=== PATIENT | male | born 1965 | race Caucasian/White ===

== ENCOUNTER 2016-10-04 21:55 | Emergency (ER) | payer OTHER ==
[2016-10-04 22:15] VITALS: BP 126/75; PULSE 61; TEMP 98.3; BMI 23.6
--- NOTE | 2016-10-04 23:13 | PDOC ---
History of Present Illness - General History Source: Patient Exam Limitations: No Limitations - History of Present Illness Initial Comments: 10/04/16 23:17 Patient is a 51 year old male with a significant past medical history of Parkinsons disease and kidney stones(last stone was 1 year ago) who presents to the ED with bilateral flank pain and urinary retention for 4 hours before presenting to the ED. Patient states that he was able to urinate a little before presenting but he was forcing himself to. Patient states that he is cold. Denies chest pain, abdominal pain, nausea, vomiting. Allergies: NKA Urologist - Dr. Paez <Sandie Webb - Last Filed: 10/04/16 23:17> - General History Source: Patient <JaidenLane mckeon - Last Filed: 10/05/16 02:20> - General Chief Complaint: Pain Stated Complaint: PAIN, ACUTE Time Seen by Provider: 10/04/16 23:10 Past History <Sandie Webb - Last Filed: 10/04/16 23:17> - Past Medical History HTN: Yes Kidney Stones: Yes Psychiatric Problems: Yes (DEPRESSION) - Immunization History Immunization Up to Date: Yes - Psycho/Social/Smoking Cessation Hx Anxiety: No Suicidal Ideation: No Smoking History: Never smoked Have you smoked in the past 12 months: No Information on smoking cessation initiated: No Hx Alcohol Use: No Drug/Substance Use Hx: No Substance Use Type: None <Lane Han - Last Filed: 10/05/16 02:20> - Past Medical History Allergies/Adverse Reactions: Allergies Allergy/AdvReac Type Severity Reaction Status Date / Time No Known Allergies Allergy Verified 08/15/15 21:12 Home Medications: Ambulatory Orders Carbidopa/Levodopa 25/100 [Sinemet 25/100 -] 1 each PO TID #90 tablet 08/01/14 Saw/Vit E/Sod Adriana/Lyc/Beta/Pyg [Prostate Health Caplet] 1 each PO DAILY Review of Systems - Review of Systems Able to Perform ROS?: Yes Comments:: 10/04/16 23:18 CONSTITUTIONAL: Absent: fever, chills, diaphoresis, generalized weakness, malaise, loss of appetite HEENT: Absent: rhinorrhea, nasal congestion, throat pain, throat swelling, difficulty swallowing, mouth swelling, ear pain, eye pain, visual Changes CARDIOVASCULAR: Absent: chest pain, syncope, palpitations, irregular heart rate, lightheadedness , peripheral edema RESPIRATORY: Absent: cough, shortness of breath, dyspnea with exertion, orthopnea, wheezing, stridor, hemoptysis GASTROINTESTINAL: Absent: abdominal pain, abdominal distension, nausea, vomiting, diarrhea, constipation, melena, hematochezia GENITOURINARY: Present: urinary retention, bilateral flank pain Absent: dysuria, frequency, urgency, hesitancy, hematuria, genital pain MUSCULOSKELETAL: Absent: myalgia, arthralgia, joint swelling SKIN: Absent: rash, itching, pallor HEMATOLOGIC/IMMUNOLOGIC: Absent: easy bleeding, easy bruising, lymphadenopathy, frequent infections ENDOCRINE: Absent: unexplained weight gain, unexplained weight loss, heat intolerance, cold intolerance NEUROLOGIC: Absent: headache, focal weakness or paresthesias, dizziness, unsteady gait, seizure, mental status changes, bladder or bowel incontinence PSYCHIATRIC: Absent: anxiety, depression, suicidal or homicidal ideation, hallucinations. <Sandie Webb - Last Filed: 10/04/16 23:17> *Physical Exam - Vital Signs Last Vital Signs Temp Pulse Resp BP Pulse Ox 98.3 F 61 18 126/75 98 10/04/16 22:12 10/04/16 22:12 10/04/16 22:12 10/04/16 22:12 10/04/16 22:12 - Physical Exam Comments: 10/04/16 23:18 GENERAL: Well developed, well nourished. Awake and alert. In no acute distress. HEENT: Normocephalic, atraumatic. PERRLA, EOMI. No conjunctival pallor. Sclerae are non -icteric. Moist mucous membranes. Oropharynx is clear. NECK: Supple. Full ROM. No JVD. Carotid pulses 2+ and symmetric, without bruits. No thyromegaly. No lymphadenopathy. CARDIOVASCULAR: Regular rate and rhythm. No murmurs, rubs, or gallops. Distal pulses are 2+ and symmetric. PULMONARY: No evidence of respiratory distress. Lungs clear to auscultation bilaterally. No wheezing, rales or rhonchi. ABDOMINAL: (+)Minimal suprapubic tenderness Soft. Non-tender. Non-distended. No rebound or guarding. No organomegaly. Normoactive bowel sounds. MUSCULOSKELETAL Normal range of motion at all joints. No bony deformities or tenderness. No CVA tenderness. EXTREMITIES: No cyanosis. No clubbing. No edema. No calf tenderness. SKIN: Warm and dry. Normal capillary refill. No rashes. No jaundice. NEUROLOGICAL: (+)No obvious resting tremor. Alert, awake, appropriate. Cranial nerves 2-12 intact. No deficits to light touch and temperature in face, upper extremities and lower extremities. No motor deficits in the in face, upper extremities and lower extremities. Normoreflexic in the upper and lower extremities. Normal speech. Toes are downgoing bilaterally. PSYCHIATRIC: Cooperative. Good eye contact. Appropriate mood and affect. <Sandie Webb - Last Filed: 10/04/16 23:17> - Vital Signs Last Vital Signs Temp Pulse Resp BP Pulse Ox 98.3 F 61 18 126/75 98 10/04/16 22:12 10/04/16 22:12 10/04/16 22:12 10/04/16 22:12 10/04/16 22:12 <Lane Han - Last Filed: 10/05/16 02:20> ED Treatment Course - LABORATORY CBC & Chemistry Diagram: 10/05/16 00:20 10/05/16 00:20 <Lane Han - Last Filed: 10/05/16 02:20> Medical Decision Making - Medical Decision Making 10/05/16 02:20 Dr. Han: The scribe's documentation has been prepared under my direction and personally reviewed by me in its entirery. I confirm that the note above accurately reflects all work, treatment, procedures, and medical decision making performed by me. <Lane Han - Last Filed: 10/05/16 02:20> *DC/Admit/Observation/Transfer - Attestations Scribe Attestion: 10/04/16 23:21 Documentation prepared by KYLE Pleitez, acting as medical research scientist for Lane Han DO. <Sandie Webb - Last Filed: 10/04/16 23:17> - Discharge Dispostion Admit: No <Lane Han - Last Filed: 10/05/16 02:20> Diagnosis at time of Disposition: Calculus of kidney and ureter - Discharge Dispostion Disposition: HOME Condition at time of disposition: Stable - Referrals Referrals: Mason Paez MD [Staff Physician] - - Patient Instructions Printed Discharge Instructions: DI for Kidney Stones
[2016-10-05 00:29] LABS: EOSINOPHIL 0.3 % (0-4.5)
[2016-10-05 00:34] LABS: BASOPHIL 0.5 % (0-2.0); MCH 29.3 pg (25.7-33.7); MCHC 32.8 g/dl (32.0-35.9); MEAN CELL VOLUME 89.1 fl (80-96); MEAN PLT VOLUME 10.4 fl (7.5-11.1); NEUTROPHILS 85.6 % (42.8-82.8); PLATELET COUNT 143 K/MM3 (134-434); RDW 13.6 % (11.9-15.9); WHITE BLOOD COUNT 12.6 K/mm3 (4.0-10.0)
[2016-10-05 00:59] LABS: ALBUMIN 4.1 g/dl (3.4-5.0); ALK PHOS 91 U/L (45-117); ANION GAP 11 (8-16); BILIRUBIN,TOTAL 0.5 mg/dL (0.2-1.0); CO2 26 mmol/L (21-32); COCKROFT - GAULT 91.72; GLUCOSE,RANDOM 95 mg/dL (74-106); MAGNESIUM 2.4 mg/dL (1.8-2.4); SGOT/AST 14 U/L (15-37); SGPT/ALT 14 U/L (12-78); TOT PROT 7.3 g/dl (6.4-8.2)
[2016-10-05 01:57] LABS: URINE APPEARANCE CLEAR; URINE BILIRUBIN NEGATIVE (NEGATIVE); URINE BLOOD 2+ (NEGATIVE); URINE COLOR COLORLESS; URINE GLUCOSE (UA) NEGATIVE (NEGATIVE); URINE KETONE NEGATIVE (NEGATIVE); URINE LEUK ESTERASE NEGATIVE (NEGATIVE); URINE NITRITE NEGATIVE (NEGATIVE); URINE PROTEIN NEGATIVE (NEGATIVE); URINE UROBILINOGEN NEGATIVE E.U./dl (0.2-1.0)
[2016-10-05 02:48] LABS: URINE RBC <1 /hpf (0-3); URINE WBC <1 /hpf (3-5)
== END 2016-10-05 02:33 | disposition home or self-care (01) ==
LOC: SUPCPDRO 21:55 → JER 21:55
DX: N13.2 Hydronephrosis with renal and ureteral calculous obstruction (principal); Z87.442 Personal history of urinary calculi; I10 Essential (primary) hypertension; F30.9 Manic episode, unspecified; G20 Parkinson's disease
CPT/HCPCS: 36415; 74176; 80053; 81003; 81015; 83735; 85025; 87086; 99281-25

== ENCOUNTER 2018-12-06 19:57 | Emergency (ER) | payer OTHER ==
[2018-12-06 20:15] VITALS: BP 102/65; PULSE 65; TEMP 98.7; BMI 24.3
[2018-12-06] MEDS ORDERED: SODIUM CHLORIDE 1,000 ML IV STA (20:17)
[2018-12-06] MEDS ORDERED: KETOROLAC TROMETHAMINE 30 MG/1 ML VIAL IVPUSH ONE (20:17)
--- NOTE | 2018-12-06 20:17 | PDOC ---
Rapid Medical Evaluation Chief Complaint: Urinary Problem Time Seen by Provider: 12/06/18 20:13 Medical Evaluation: Allergies Allergy/AdvReac Type Severity Reaction Status Date / Time No Known Allergies Allergy Verified 08/15/15 21:12 12/06/18 20:15 Pt c/o: rt flank pain with dysuria, hx kidney stones in the past seen by lina Pt on brief exam: no cve taenderness, mild ruq and flank tenderness on exam pt ordered for: labs, urine, ivf, and toradol Pt to proceed to the ED Discharge Disposition - Diagnosis Flank pain, Constipation - Discharge Dispostion Disposition: HOME Condition at time of disposition: Stable - Prescriptions Prescriptions: Docusate Sodium [Colace] 100 mg PO DAILY #14 capsule Lactulose (Oral Use) [Cephulac -] 20 gm PO TID #1 bottle - Referrals Referrals: Mason Paez MD [Primary Care Provider] - - Patient Instructions Printed Discharge Instructions: DI for Constipation Additional Instructions: Please follow up with Dr. James if urinary symptoms persist. Take medications as prescribed for constipation. If you develop abdominal pain, persistent vomiting, or new rectal bleeding, please return to the ER. - Post Discharge Activity
[2018-12-06 21:23] LABS: BASO % 0.5 % (0-2.0); EOS % 0.4 % (0-4.5); HEMATOCRIT 43.8 % (35.4-49); HEMOGLOBIN 14.7 GM/dL (11.7-16.9); LYMPH % 20.7 % (8-40); MCH 30.1 pg (25.7-33.7); MCHC 33.6 g/dl (32.0-35.9); MEAN CELL VOLUME 89.6 fl (80-96); MEAN PLT VOLUME 9.9 fl (7.5-11.1); MONO % 5.9 % (3.8-10.2); NEUT % 72.5 % (42.8-82.8); PLATELET COUNT 149 K/MM3 (134-434); RBC 4.88 M/mm3 (4.00-5.60); RDW 13.6 % (11.9-15.9); WHITE BLOOD COUNT 9.3 K/mm3 (4.0-10.0)
--- NOTE | 2018-12-06 21:30 | PDOC ---
History of Present Illness - General Chief Complaint: Urinary Problem Stated Complaint: FREQUENT URINATION Time Seen by Provider: 12/06/18 20:13 - History of Present Illness Initial Comments: 12/06/18 21:27 CHIEF COMPLAINT: urinary frequency, constipation HISTORY OF PRESENT ILLNESS: 53 yo M with hx of Parkinson's and kidney stones presents to ED with urinary frequency and burning and constipation. Patient states he has had urinary frequency for the last 5 days and has not had a bowel movement in 3 days. He reports feeling dizzy and nauseous today but denies any vomiting. He also reports straining to make a bowel movement and that when he wipes there is BRBPR. No recent travel or sick contacts. PAST MEDICAL HISTORY: Denies past medical history FAMILY HISTORY: Denies SOCIAL HISTORY: Denies tobacco, alcohol, illicit drug use. SURGICAL HISTORY: Denies ALLERGIES: No known drug allergies REVIEW OF SYSTEMS General/Constitutional: Denies fever or chills. Denies weakness, weight change. HEENT: Denies change in vision. Denies ear pain or discharge. Denies sore throat. Cardiovascular: Denies chest pain or shortness of breath. Respiratory: Denies cough, wheezing, or hemoptysis. Gastrointestinal: Denies nausea, vomiting, diarrhea or constipation. Denies rectal bleeding. Genitourinary: Urinary frequency and burning. Denies hematuria. Musculoskeletal: Denies joint or muscle swelling or pain. Denies neck or back pain. Skin and breasts: Denies rash or easy bruising. Neurologic: Denies headache, vertigo, loss of consciousness, or loss of sensation. PHYSICAL EXAM General Appearance: Well-appearing, appropriately dressed. No apparent distress. HEENT: EOMI, PERRLA, normal ENT inspection, normal voice, TMs normal, pharynx normal. No conjunctival pallor. No photophobia, scleral icterus. Neck: Supple. Trachea midline. No tenderness, rigidity, carotid bruit, stridor , lymphadenopathy, or thyromegaly. Respiratory/Chest: Lungs CTAB. No shortness of breath, chest tenderness, respiratory distress, accessory muscle use. No crackles, rales, rhonchi, stridor , wheezing, dullness Cardiovascular: RRR. S1, S2. No JVD, murmur, bradycardia, tachycardia. Gastrointestinal/Abdominal: Normal bowel sounds. Abdomen soft, non-distended. No tenderness or rebound tenderness. No organomegaly, pulsatile mass, guarding , hernia, hepatomegaly, splenomegaly. Musculoskeletal/Extremities: R CVAT. Normal inspection. FROM of all extremities, normal capillary refill. Pelvis Stable. No tenderness to extremities, pedal edema, swelling, erythema or deformity. Integumentary: Appropriate color, dry, warm. No cyanosis, erythema, jaundice or rash Neurologic: screw eye assembler II-XII intact. Fully oriented, alert. Appropriate mood/affect. Motor strength 5/5. No appreciable EOM palsy, facial droop or sensory deficit. 0 Past History - Past Medical History Allergies/Adverse Reactions: Allergies Allergy/AdvReac Type Severity Reaction Status Date / Time No Known Allergies Allergy Verified 12/06/18 20:15 Home Medications: Ambulatory Orders Carbidopa/Levodopa [Sinemet -] 1 each PO TID #90 tablet 08/01/14 Saw/Vit E/Sod Adriana/Lyc/Beta/Pyg [Prostate Health Caplet] 1 each PO DAILY Ibuprofen 800 mg PO TID #30 tablet 10/05/16 Oxycodone HCl/Acetaminophen [Percocet 5-325 mg Tablet] 1 - 2 tab PO Q6H #20 tablet MDD 4 10/05/16 Docusate Sodium [Colace] 100 mg PO DAILY #14 capsule 12/06/18 Lactulose (Oral Use) [Cephulac -] 20 gm PO TID #1 bottle 12/06/18 COPD: No HTN: Yes Kidney Stones: Yes Psychiatric Problems: Yes (DEPRESSION) Other medical history: parkinsons - Immunization History Immunization Up to Date: Yes - Suicide/Smoking/Psychosocial Hx Smoking History: Never smoked Have you smoked in the past 12 months: No Hx Alcohol Use: No Drug/Substance Use Hx: No Substance Use Type: None *Physical Exam - Vital Signs Last Vital Signs Temp Pulse Resp BP Pulse Ox 98.7 F 65 18 102/65 99 12/06/18 20:13 12/06/18 20:13 12/06/18 20:13 12/06/18 20:13 12/06/18 20:13 ED Treatment Course - LABORATORY CBC & Chemistry Diagram: 12/06/18 21:04 12/06/18 21:04 - RADIOLOGY Radiology Studies Ordered: Category Date Time Status ABDOMEN FLAT & UPRIGHT [RAD] Stat Radiology 12/06/18 21:25 Ordered Medical Decision Making - Medical Decision Making 12/06/18 21:30 53 yo M with hx of Parkinson's and kidney stones presents to ED with urinary frequency and burning as well as constipation and rectal bleeding . -labs, urine -abd x-ray -guaic 12/06/18 23:45 guaiac negative. labs negative. abd x-ray negative for obstruction. d/c with laxatives. *DC/Admit/Observation/Transfer Diagnosis at time of Disposition: Flank pain Constipation Qualifiers: Constipation type: unspecified constipation type Qualified Code(s): K59.00 - Constipation, unspecified - Discharge Dispostion Disposition: HOME Condition at time of disposition: Stable Decision to Admit order: No - Prescriptions Prescriptions: Docusate Sodium [Colace] 100 mg PO DAILY #14 capsule Lactulose (Oral Use) [Cephulac -] 20 gm PO TID #1 bottle - Referrals Referrals: Mason Paez MD [Primary Care Provider] - - Patient Instructions Printed Discharge Instructions: DI for Constipation Additional Instructions: Please follow up with Dr. James if urinary symptoms persist. Take medications as prescribed for constipation. If you develop abdominal pain, persistent vomiting, or new rectal bleeding, please return to the ER. - Post Discharge Activity
[2018-12-06] MEDS ORDERED: KETOROLAC TROMETHAMINE 30 MG/1 ML VIAL ONE (21:31)
[2018-12-06 22:03] LABS: BILIRUBIN,TOTAL 0.7 mg/dL (0.2-1); BLOOD UREA NITROGEN 6.5 mg/dL (7-18); CALCIUM 8.7 mg/dL (8.5-10.1); MAGNESIUM 2.5 mg/dL (1.8-2.4); POTASSIUM 4.3 mmol/L (3.5-5.1); TOT PROT 7.3 g/dl (6.4-8.2)
[2018-12-06 22:10] LABS: URINE APPEARANCE CLEAR; URINE BILIRUBIN NEGATIVE (NEGATIVE); URINE COLOR YELLOW; URINE GLUCOSE (UA) NEGATIVE (NEGATIVE); URINE KETONE TRACE (NEGATIVE); URINE LEUK ESTERASE NEGATIVE (NEGATIVE); URINE NITRITE NEGATIVE (NEGATIVE); URINE PROTEIN NEGATIVE (NEGATIVE); URINE UROBILINOGEN 0.2 mg/dL (0.2-1.0)
--- NOTE | 2019-01-08 09:36 | EKG ---
Test Reason : Blood Pressure : / mmHG Vent. Rate : 075 BPM Atrial Rate : 075 BPM P-R Int : 178 ms QRS Dur : 114 ms QT Int : 400 ms P-R-T Axes : 035 000 020 degrees QTc Int : 446 ms NORMAL SINUS RHYTHM NORMAL ECG Confirmed by Lenin Duque MD ([id number]) on 01/08/2019 9:36:41 AM Referred By: Confirmed By:Lenin Duque MD
== END 2018-12-06 23:56 | disposition home or self-care (01) ==
LOC: JER 19:57
PROC: 3E0333Z Introduction of Anti-inflammatory into Peripheral Vein, Percutaneous Approach (ICD-10-PCS; principal; 2018-12-06)
PROC: 3E0337Z Introduction of Electrolytic and Water Balance Substance into Peripheral Vein, Percutaneous Approach (ICD-10-PCS; 2018-12-06)
DX: K59.00 Constipation, unspecified (principal); R10.9 Unspecified abdominal pain; G20 Parkinson's disease; I10 Essential (primary) hypertension; Z87.442 Personal history of urinary calculi
CPT/HCPCS: 36415; 74019-TC-FY; 80053; 81003; 82272; 83690; 83735; 85025; 87086; 93005; 93010; 99283-25; J7030

== ENCOUNTER 2022-12-18 17:08 | Observation (INO) | payer OTHER ==
[2022-12-18 17:21] VITALS: BMI 20.2
[2022-12-18] MEDS ORDERED: SODIUM CHLORIDE 1,000 ML IV SCH (17:30)
[2022-12-18 18:50] LABS: BASO % 0.3 % (0-2.0); EOS % 0.1 % (0-4.5); HEMATOCRIT 39.4 % (35.4-49); HEMOGLOBIN 13.3 GM/dL (11.7-16.9); MCHC 33.8 g/dl (32.0-35.9); MEAN CELL VOLUME 88.8 fl (80-96); MEAN PLT VOLUME 10.3 fl (7.5-11.1); NEUT % 79.6 % (42.8-82.8); PLATELET COUNT 120 10^3/uL (134-434); RBC 4.44 M/mm3 (4.00-5.60); RDW 13.4 % (11.9-15.9); WHITE BLOOD COUNT 9.3 K/mm3 (4.0-10.0)
[2022-12-18 18:58] LABS: POTASSIUM 4.6 mmol/L (3.5-5.1)
[2022-12-18 18:59] LABS: ALBUMIN 3.6 g/dl (3.4-5.0); CALCIUM 8.8 mg/dL (8.5-10.1)
[2022-12-18 19:01] LABS: BLOOD UREA NITROGEN 17.7 mg/dL (7-18)
[2022-12-18 19:02] LABS: CREATININE 1.1 mg/dL (0.55-1.3)
[2022-12-18 19:04] LABS: INR 1.16 (0.83-1.09); PROTHROMBIN TIME (PATIENT) 13.4 SEC (9.7-13.0)
[2022-12-18 19:05] LABS: BILIRUBIN,TOTAL 0.8 mg/dL (0.2-1); TOT PROT 6.4 g/dl (6.4-8.2)
[2022-12-18 19:07] LABS: ACTIVATED PTT 28.9 SECONDS (25.2-36.5)
[2022-12-18] MEDS ORDERED: SODIUM CHLORIDE 0.9% 500 ML INFUS.BAG IV ONE (20:08)
[2022-12-18] MEDS ORDERED: CARBIDOPA/LEVODOPA 25/100 TABLET (FP) ONE (21:36)
[2022-12-18] MEDS ORDERED: ASPIRIN 325 MG ENTERIC COATED TABLET (FP) PO ONE (21:45)
[2022-12-18] MEDS ORDERED: ASPIRIN 325 MG ENTERIC COATED TABLET (FP) ONE (22:00)
[2022-12-18] MEDS ORDERED: rOPINIRole HCL 0.25 MG TABLET PO SCH (22:00)
[2022-12-18] MEDS ORDERED: ENOXAPARIN NA (PORCINE) 40 MG/0.4 ML DISP.SYRIN SQ ONE (22:01)
[2022-12-18] MEDS: ENOXAPARIN NA (PORCINE) 40 MG/0.4 ML DISP.SYRIN SQ SCH (22:14)
[2022-12-19 06:41] LABS: HEMATOCRIT 39.9 % (35.4-49); HEMOGLOBIN 13.1 GM/dL (11.7-16.9); MCH 29.6 pg (25.7-33.7); MCHC 32.7 g/dl (32.0-35.9); MEAN CELL VOLUME 90.5 fl (80-96); MEAN PLT VOLUME 10.6 fl (7.5-11.1); PLATELET COUNT 110 10^3/uL (134-434); RBC 4.41 M/mm3 (4.00-5.60); RDW 13.6 % (11.9-15.9); WHITE BLOOD COUNT 6.7 K/mm3 (4.0-10.0)
[2022-12-19] MEDS ORDERED: CARBIDOPA/LEVODOPA 25/100 TABLET (FP) ONE (06:47)
[2022-12-19] MEDS: SODIUM CHLORIDE 1,000 ML IV SCH (06:54)
[2022-12-19 07:04] LABS: POTASSIUM 4.1 mmol/L (3.5-5.1)
[2022-12-19 07:05] LABS: BLOOD UREA NITROGEN 12.3 mg/dL (7-18); CALCIUM 8.6 mg/dL (8.5-10.1)
[2022-12-19 07:07] LABS: ALBUMIN 3.4 g/dl (3.4-5.0)
[2022-12-19 07:09] LABS: CREATININE 0.8 mg/dL (0.55-1.3)
[2022-12-19 07:11] LABS: TOT PROT 6.3 g/dl (6.4-8.2)
[2022-12-19] MEDS ORDERED: SOLIFENACIN SUCCINATE PO SCH (10:00)
[2022-12-19 16:49] LABS: URINE APPEARANCE CLEAR; URINE BILIRUBIN NEGATIVE (NEGATIVE); URINE COLOR YELLOW; URINE GLUCOSE (UA) NEGATIVE (NEGATIVE); URINE KETONE 1+ (NEGATIVE); URINE LEUK ESTERASE NEGATIVE (NEGATIVE); URINE NITRITE NEGATIVE (NEGATIVE); URINE PROTEIN NEGATIVE (NEGATIVE); URINE UROBILINOGEN 0.2 mg/dL (0.2-1.0)
[2022-12-19] MEDS: amLODIPine BESYLATE 5 MG TABLET (FP) PO SCH (19:13)
[2022-12-19] MEDS: SOLIFENACIN SUCCINATE 5 MG TAB PO SCH (19:13)
[2022-12-19] MEDS: ASPIRIN COATED 81 MG TABLET.EC PO SCH (19:13)
[2022-12-19] MEDS: ENOXAPARIN NA (PORCINE) 40 MG/0.4 ML DISP.SYRIN SQ SCH (19:13)
[2022-12-19] MEDS: CARBIDOPA/LEVODOPA 25/100 TABLET (FP) PO SCH (23:14)
[2022-12-20] MEDS ORDERED: MELATONIN 5 MG TABLETS PO ONE (00:39)
[2022-12-20] MEDS: rOPINIRole HCL 0.25 MG TABLET PO SCH ×4 (00:46→15:23)
[2022-12-20] MEDS: amLODIPine BESYLATE 5 MG TABLET (FP) PO SCH (09:09)
[2022-12-20] MEDS: ASPIRIN COATED 81 MG TABLET.EC PO SCH (09:09)
[2022-12-20] MEDS: ENOXAPARIN NA (PORCINE) 40 MG/0.4 ML DISP.SYRIN SQ SCH (09:13)
[2022-12-20] MEDS: SOLIFENACIN SUCCINATE 5 MG TAB PO SCH (10:41)
[2022-12-20] MEDS: CARBIDOPA/LEVODOPA 25/100 TABLET (FP) PO SCH ×3 (10:41→15:24)
[2022-12-20] MEDS ORDERED: CARBIDOPA/LEVODOPA 25/100 TABLET (FP) PO SCH (13:21)
[2022-12-20] MEDS: SODIUM CHLORIDE 1,000 ML IV SCH (13:21)
[2022-12-20] MEDS ORDERED: levETIRAcetam 500 MG/5 ML INJECTION VIAL IVPB ONE (18:51)
[2022-12-20] MEDS: levETIRAcetam 500 MG/5 ML INJECTION VIAL IVPB SCH ×2 (21:15→22:47)
[2022-12-20] MEDS ORDERED: SODIUM CHLORIDE 1,000 ML IV SCH (22:00)
[2022-12-20] MEDS: MELATONIN 5 MG TABLETS PO SCH ×2 (22:46)
[2022-12-21] MEDS: rOPINIRole HCL 0.25 MG TABLET PO SCH ×4 (05:58→22:43)
[2022-12-21] MEDS: ASPIRIN COATED 81 MG TABLET.EC PO SCH (09:04)
[2022-12-21] MEDS: amLODIPine BESYLATE 5 MG TABLET (FP) PO SCH (09:05)
[2022-12-21] MEDS: levETIRAcetam 500 MG/5 ML INJECTION VIAL IVPB SCH ×2 (09:05→22:43)
[2022-12-21] MEDS: ENOXAPARIN NA (PORCINE) 40 MG/0.4 ML DISP.SYRIN SQ SCH (09:05)
[2022-12-21] MEDS: SOLIFENACIN SUCCINATE 5 MG TAB PO SCH (09:06)
[2022-12-21] MEDS ORDERED: rOPINIRole HCL 0.25 MG TABLET PO SCH (14:45)
[2022-12-21] MEDS ORDERED: DOCUSATE NA 100 MG/10 ML UNIT-DOSE CUPS PO PRN (15:31)
[2022-12-21] MEDS: POLYETHYLENE GLYCOL (HEALTHYLAX) 3350 17 GM PACKET PO SCH ×2 (16:10→22:44)
[2022-12-21] MEDS: CARBIDOPA/LEVODOPA 25/100 TABLET (FP) PO SCH (22:43)
[2022-12-21] MEDS: MELATONIN 5 MG TABLETS PO SCH (22:44)
[2022-12-22 08:24] LABS: BASO % 0.2 % (0-2.0); EOS % 0.3 % (0-4.5); HEMATOCRIT 40.4 % (35.4-49); HEMOGLOBIN 13.6 GM/dL (11.7-16.9); LYMPH % 16.6 % (8-40); MCHC 33.6 g/dl (32.0-35.9); MEAN CELL VOLUME 89.2 fl (80-96); MEAN PLT VOLUME 10.2 fl (7.5-11.1); MONO % 6.8 % (3.8-10.2); NEUT % 76.1 % (42.8-82.8); PLATELET COUNT 127 10^3/uL (134-434); RBC 4.53 M/mm3 (4.00-5.60); RDW 13.3 % (11.9-15.9); WHITE BLOOD COUNT 7.8 K/mm3 (4.0-10.0)
[2022-12-22 09:14] LABS: POTASSIUM 4.2 mmol/L (3.5-5.1)
[2022-12-22 09:16] LABS: CALCIUM 8.6 mg/dL (8.5-10.1)
[2022-12-22 09:17] LABS: ALBUMIN 3.1 g/dl (3.4-5.0); BLOOD UREA NITROGEN 13.9 mg/dL (7-18)
[2022-12-22 09:20] LABS: CREATININE 0.7 mg/dL (0.55-1.3)
[2022-12-22 09:21] LABS: BILIRUBIN,TOTAL 0.9 mg/dL (0.2-1)
[2022-12-22] MEDS: POLYETHYLENE GLYCOL (HEALTHYLAX) 3350 17 GM PACKET PO SCH ×2 (11:11→22:22)
[2022-12-22] MEDS: ENOXAPARIN NA (PORCINE) 40 MG/0.4 ML DISP.SYRIN SQ SCH (11:11)
[2022-12-22] MEDS: CARBIDOPA/LEVODOPA 25/100 TABLET (FP) PO SCH ×2 (11:12→22:22)
[2022-12-22] MEDS: ASPIRIN COATED 81 MG TABLET.EC PO SCH (11:13)
[2022-12-22] MEDS: SOLIFENACIN SUCCINATE 5 MG TAB PO SCH (11:15)
[2022-12-22] MEDS: amLODIPine BESYLATE 5 MG TABLET (FP) PO SCH (11:15)
[2022-12-22] MEDS: levETIRAcetam 500 MG/5 ML INJECTION VIAL IVPB SCH ×2 (11:19→11:31)
[2022-12-22] MEDS: rOPINIRole HCL 0.25 MG TABLET PO SCH (22:22)
[2022-12-22] MEDS: MELATONIN 5 MG TABLETS PO SCH (22:22)
[2022-12-23] MEDS: POLYETHYLENE GLYCOL (HEALTHYLAX) 3350 17 GM PACKET PO SCH ×2 (09:32→22:54)
[2022-12-23] MEDS: ASPIRIN COATED 81 MG TABLET.EC PO SCH (09:32)
[2022-12-23] MEDS: ENOXAPARIN NA (PORCINE) 40 MG/0.4 ML DISP.SYRIN SQ SCH (09:32)
[2022-12-23] MEDS: CARBIDOPA/LEVODOPA 25/100 TABLET (FP) PO SCH ×2 (09:33→22:54)
[2022-12-23] MEDS: SOLIFENACIN SUCCINATE 5 MG TAB PO SCH (09:33)
[2022-12-23] MEDS ORDERED: DOCUSATE NA 100 MG/10 ML UNIT-DOSE CUPS PO PRN (11:02)
[2022-12-23] MEDS ORDERED: MELATONIN 5 MG TABLETS PO SCH (22:00)
[2022-12-23] MEDS ORDERED: rOPINIRole HCL 0.25 MG TABLET PO SCH (22:00)
[2022-12-24] MEDS ORDERED: SOLIFENACIN SUCCINATE 5 MG TAB PO SCH (10:00)
[2022-12-24] MEDS ORDERED: ASPIRIN COATED 81 MG TABLET.EC PO SCH (10:00)
[2022-12-24] MEDS ORDERED: ENOXAPARIN NA (PORCINE) 40 MG/0.4 ML DISP.SYRIN SQ SCH (10:00)
[2022-12-24] MEDS: POLYETHYLENE GLYCOL (HEALTHYLAX) 3350 17 GM PACKET PO SCH (10:21)
[2022-12-24] MEDS: CARBIDOPA/LEVODOPA 25/100 TABLET (FP) PO SCH (11:35)
[2022-12-24 12:09] VITALS: RESP 18
[2022-12-24 12:53] LABS: BASO % 0.2 % (0-2.0); HEMATOCRIT 44.3 % (35.4-49); HEMOGLOBIN 14.8 GM/dL (11.7-16.9); LYMPH % 8.6 % (8-40); MCH 29.8 pg (25.7-33.7); MCHC 33.4 g/dl (32.0-35.9); MEAN CELL VOLUME 89.4 fl (80-96); MEAN PLT VOLUME 10.6 fl (7.5-11.1); MONO % 4.2 % (3.8-10.2); PLATELET COUNT 161 10^3/uL (134-434); RBC 4.96 M/mm3 (4.00-5.60); RDW 13.1 % (11.9-15.9); WHITE BLOOD COUNT 8.6 K/mm3 (4.0-10.0)
[2022-12-24 13:10] LABS: POTASSIUM 4.4 mmol/L (3.5-5.1)
[2022-12-24 13:12] LABS: ALBUMIN 3.7 g/dl (3.4-5.0); BLOOD UREA NITROGEN 18.2 mg/dL (7-18); CALCIUM 8.5 mg/dL (8.5-10.1)
[2022-12-24 13:15] LABS: CREATININE 0.8 mg/dL (0.55-1.3)
[2022-12-24 13:17] LABS: TOT PROT 7.1 g/dl (6.4-8.2)
[2022-12-24 17:53] VITALS: BP 104/62; PULSE 79; TEMP 98.2
== END 2022-12-24 20:40 | disposition short-term general hospital (02) ==
LOC: JER 17:08 → JERBED 20:08 → J4S 12-19 22:39 → J7W 12-23 10:45
PROVIDERS: ADMIT Internal Medicine; ATTEND Internal Medicine
PROC: 3E0337Z Introduction of Electrolytic and Water Balance Substance into Peripheral Vein, Percutaneous Approach (ICD-10-PCS; principal; 2022-12-18)
DX: G20 Parkinson's disease (principal); G81.94 Hemiplegia, unspecified affecting left nondominant side; R94.4 Abnormal results of kidney function studies; M62.82 Rhabdomyolysis; R35.0 Frequency of micturition; N20.0 Calculus of kidney; R33.9 Retention of urine, unspecified; Z29.8 Encounter for other specified prophylactic measures; M54.10 Radiculopathy, site unspecified; R53.1 Weakness; R41.0 Disorientation, unspecified
CPT/HCPCS: 36415; 70450-TC; 70551-TC; 72141-TC; 80053; 80061; 81003; 82550; 82553; 82962; 83036; 84484; 85025; 85027; 85610; 85730; 86850; 86900; 86901; 87086; 87635; 93005; 93010; 93306-TC; 93880-TC; 95816; 96360; 97116-GP; 97161-GP; 99285-25; G0378